=== PATIENT | female | born 1975 | race Caucasian/White ===

== ENCOUNTER 2020-08-30 20:50 | Emergency (ER) | payer BC | END 2020-08-30 22:14 | LOC: NAV ERS 20:50 | DX: Z04.1 Encounter for examination and observation following transport accident (principal); I10 Essential (primary) hypertension; E03.9 Hypothyroidism, unspecified; F41.9 Anxiety disorder, unspecified; F32.9 Major depressive disorder, single episode, unspecified; Z79.899 Other long term (current) drug therapy; V43.92XA Unspecified car occupant injured in collision with other type car in traffic accident, initial encounter | CPT/HCPCS: 99283 ==